=== PATIENT | female | born 1965 | race Caucasian/White ===

== ENCOUNTER 2018-04-21 15:54 | Observation (INO) | payer MEDICAID ==
[~2018-04-21] VITALS: Ht 160 cm; Wt 50.6 kg
--- NOTE | ~2018-04-21 | HEMODYNAMI ---
PATIENT:CONCHA LEMA MEDICAL RECORD: [id number] : 67 LOCATION:[place] [address] ADMISSION DATE: 04/21/18 Generatedon:04/22/201814:15 Patient name: CONCHA LEMA Patient #: [id number] SSN: : 1965 Date of study: 04/22/2018 Page: Of Hemodynamic Procedure Report Patient Data Patient Demographics Procedure consent was obtained First Name: CONCHA Gender: Female Last Name: PITA : 1965 Patient #: [id number] Age: 52 year(s) Race: Unknown Additional ID: [id number] Contact details [address]: [address] [place] [address] State: [place] City: [place] Zip code: [address] Past Medical History Allergies: No known allergies Admission Admission Data Admission Date: 04/21/2018 Admission Time: 19:22 Room #: [facility] Height (in.): 62.99 BSA: 1.51 (m2) Height (cm.): 160 BMI: 19.73 (kg/m2) Weight (lbs.): 111.33 Weight (kg.): 50.5 Lab Results Lab Result Date: 04/22/2018 Lab Result Time: 0:00 Biochemistry Name Units Result Min Max BUN mg/dl 13 --(--*-)-- 7 18 Creatinine mg/dl 0.7 --(*---)-- 0.6 1.3 CBC Name Units Result Min Max Hemoglobin g/dl 12.3 *-(----)-- 13.5 17.5 Procedure Procedure Types Cath Procedure Diagnostic Procedure LHC LHC w/Coronaries Procedure Description Procedure Date Procedure Date: 04/22/2018 Procedure Start Time: 13:58 Procedure End Time: 14:11 Procedure Staff Name Function Justin Esteban MD Performing Physician Angela Huff RT Monitor Brennen Johnston RN Nurse Nancy Valladares RT Scrub Procedure Data Cath Procedure Fluoroscopy Diagnostic fluoroscopy Total fluoroscopy Time: 2.9 time: 2.9 min min Diagnostic fluoroscopy Total fluoroscopy dose: 297 dose: 297 mGy mGy Contrast Material Contrast Material Type Amount (ml) Isovue 300 67 Entry Location Entry Primary Successful Side Size Upsize Upsize Entry Closure Succes sful Closure Location (Fr) 1 (Fr) 2 (Fr) Remarks Device Remarks Femoral Right 5 Fr Exoseal artery Estimated blood loss: 10 ml Diagnostic catheters Device Type Used For End Catheter Placement MULTIPACK JL 4.0 5Fr Procedure catheter MULTIPACK JL 4.0 5Fr Procedure catheter MULTIPACK 3DRC 5Fr Procedure catheter MULTIPACK Pigtail 5 Fr Procedure catheter Procedure Complications No complications Procedure Medications Medication Administration Route Dosage Oxygen etCO2 Nasal cannula 2 l/min Lidocaine 2% added to field 20 Heparin Flush Bag added to field 2 bags (1000units/500ml NS) 0.9% NaCl I.V. 100 ml/hr Radial Cocktail I.A. 1 syringe (Verapomil 2mg/Nitro 400mcg/Heparin 1500units) Versed I.V. 1 mg Fentanyl I.V. 50 mcg Versed I.V. 1 mg Fentanyl I.V. 50 mcg Fentanyl I.V. 25 mcg Hemodynamics Rest BSA: 1.51 (m2) HGB: 12.3 (g/dl) O2 Consumption: Estimated: 149.2 (ml/min) O2 Con sumption indexed: Estimated:98.81 (ml/min/m) Heart Rate: 73 (bpm) Pressure Samples Time Site Value (mmHg) Purpose Heart Use Rate(bpm) 14:08 LV 148/3,23 Snapshot 79 14:08 AO 144/77(105) Pullback 71 14:08 LV 140/4,21 Pullback 71 Gradients Valve Time Site 1 Site 2 Mean SEP/DFP Peak To Heart Use (mmHg) (sec/min) Peak Rate (mmHg) (bpm) Aortic 14:08 LV AO 0 8 0 71 140/4,21 144/77(105) Calculations Valve P-P Mean Valve Index Valve Source Name Gradient Area Flow (cm2) Aortic 0 0 0 0 Snapshots Pre Cath Intra NCS Post Cath Vital Signs Time Heart Resp SPO2 etCO2 NIBP (mmHg) Rhythm Pain Sedation Rate (ipm) (%) (mmHg) Status Level (bpm) 13:44:22 67 15 98 0 163/104(143) NSR 0 (11) 10(A) , No pain 13:48:34 67 15 98 0 161/102(143) NSR 0 (11) 10(A) , No pain 13:52:44 81 14 95 0 152/98(134) NSR 0 (11) 10(A) , No pain 13:56:51 78 15 98 0 136/94(122) NSR 0 (11) 10(A) , No pain 14:00:53 72 14 100 0 148/94(128) NSR 0 (11) 9(A) , No pain 14:05:01 75 15 99 0 140/89(122) NSR 0 (11) 9(A) , No pain 14:09:05 75 16 99 0 133/92(121) NSR 0 (11) 9(A) , No pain 14:12:28 74 17 99 0 131/89(107) NSR 0 (11) 10(A) , No pain Medications Time Medication Route Dose Verified Delivered Reason Notes Effectiveness by by 13:41:19 Oxygen etCO2 2 l/min Justin Buffie used for Nasal Carlito Johnston RN procedure cannula 13:49:35 Lidocaine 2% added 20ml Justin Justin for local to vial Carlito Esteban MD anesthetic field 13:49:42 Heparin Flush added 2 bags Justin Justin used for Bag to Carlito Esteban MD procedure (1000units/500ml field NS) 13:49:52 0.9% NaCl I.V. 100 Justin Buffie Per ml/hr Carlito Johnston RN physician 13:50:05 Radial Cocktail I.A. 1 Justin Justin for not (Verapomil syringe Carlito Esteban MD vasodilation used. 2mg/Nitro femoral 400mcg/Heparin access. 1500units) 13:54:34 Versed I.V. 1 mg Justin Buffie for sedation Carlito Johnston RN 13:54:40 Fentanyl I.V. 50 mcg Justin Buffie for sedation Carlito Johnston RN 14:01:11 Versed I.V. 1 mg Justin Buffie for sedation Carlito Johnston RN 14:01:15 Fentanyl I.V. 50 mcg Justin Buffie for sedation Carlito Johnston RN 14:05:49 Fentanyl I.V. 25 mcg Justin Buffie for sedation Carlito Johnston RN Procedure Log Time Note 13:34:23 Patient Height : 62.99 inches 13:34:27 Patient Weight : 111.33 lbs 13:35:06 Lab Result : Creatinine 0.7 mg/dl 13:35:06 Lab Result : BUN 13 mg/dl 13:35:06 Lab Result : Hemoglobin 12.3 g/dl 13:35:33 Diagnostic Cath status Elective 13:35:35 Brennen Johnston RN sent for patient. Start room use. 13:35:36 Time tracking: Regular hours (M-F 7:00 - 5:00) 13:35:41 Plan of Care:Hemodynamics will remain stable., Cardiac rhythm will remain stable., Comfort level will be maintained., Respiratory function will remain adequate., Patient/ family verbilizes understanding of procedure., Procedure tolerated without complication., Recovers from procedure without complications.. 13:36:12 Patient received from Med II to CCL 2 Alert and oriented. Tansferred to table in Supine position. 13:36:14 Warm blankets applied, and presley hugger turned on for patient comfort. 13:36:14 Correct patient and procedure confirmed by team. 13:36:16 Signed procedure consent form obtained from patient. 13:36:33 H&P Date Dictated: 04/21/2018 Within 30 days and on chart., H&P Addendum completed by physician on day of procedure. (MUST COMPLETE FOR ALL OUTPATIENTS). 13:36:35 Pre-procedure instructions explained to patient. 13:36:37 Family in patients room. 13:36:39 Patient NPO since Midnight. 13:36:49 Patient allergic to No known allergies 13:36:52 Is the patient allergic to Iodine/contrast media? No. 13:36:54 Was the patient premedicated? Yes 13:37:01 Is patient on blood thinner?No 13:37:49 Patient diabetic? No. 13:37:55 Patient not . Patient has had tubal. 13:38:00 Snore? Yes 13:40:21 Full Disclosure recording started 13:41:19 Oxygen 2 l/min etCO2 Nasal cannula was administered by Brennen Johnston RN; used for procedure; 13:43:18 Vital chart was started 13:43:18 ECG and BP/O2 sat monitors applied to patient. 13:43:19 Baseline sample Acquired. 13:43:22 Rhythm: sinus rhythm 13:43:26 Pre-op teaching completed and patient verbalized understanding. 13:43:32 Previous problem with sedation/anesthesia? No ? 13:43:38 Sleep apnea? No 13:43:39 Deviated septum? No 13:43:40 Opens mouth fully? Yes 13:43:41 Sticks out tongue? Yes 13:43:42 Airway obstruction? No ? 13:43:45 Dentures? No ? 13:43:48 Pre procedure: right dorsailis pedis pulse 2+ Normal; easily identifiable; not easily obliterated 13:43:50 Modified Magdi's test Ulnar < 7 seconds 13:43:51 Patient pain scale 0/10 ?. 13:44:01 IV patent on arrival in left forearm with 0.9% NaCl at [facility]. 13:44:04 Lab results completed and on chart. 13:44:09 Right Radial & Right Groin area was prepped with chlora-prep and draped in sterile fashion 13:44:10 Alarms reviewed by R. N. 13:44:10 Sharps counted by scrub and verified by R.N. 13:44:16 ACIST Syringe (88395) opened to sterile field. 13:44:17 Medline Cath Pack ([id number]) opened to sterile field. 13:44:17 Bag Decanter (2002S) opened to sterile field. 13:44:18 DIAGNOSTIC WIRE .035 260cm J wire (901491) opened to sterile field. 13:44:18 ACIST Hand Control (77723) opened to sterile field. 13:44:19 ACIST Manifold (70182) opened to sterile field. 13:44:19 Tegaderm 4 x 4 (1626W) opened to sterile field. 13:44:20 MBrace Wrist Support ([id number]) opened to sterile field. 13:48:14 Physician paged 13:49:35 Lidocaine 2% 20ml vial added to field was administered by Justin Esteban MD; for local anesthetic; 13:49:42 Heparin Flush Bag (1000units/500ml NS) 2 bags added to field was administered by Justin Esteban MD; used for procedure; 13:49:52 0.9% NaCl 100 ml/hr I.V. was administered by Brennen Johnston RN; Per physician; 13:50:05 Radial Cocktail (Verapomil 2mg/Nitro 400mcg/Heparin 1500units) 1 syringe I.A. was administered by Justin Esteban MD; for vasodilation; not used. femoral access. 13:52:54 Physician arrived 13::55 --------ALL STOP TIME OUT------ 13:52:55 Final Timeout: patient, procedure, and site verified with staff and physician. All members of the team are in agreement. 13:53:12 Physical assessment completed. ASA score P 2 - A patient with mild systemic disease as per Justin Esteban MD. 13:53:15 Sedation plan: IV Moderate Sedation Medication:Versed, Fentanyl 13:54:34 Versed 1 mg I.V. was administered by Brennen Johnston RN; for sedation; 13:54:40 Fentanyl 50 mcg I.V. was administered by Brennen Johnston RN; for sedation; 13:57:14 Use device set Multipack Set 13:57:18 DIAGNOSTIC Multipack 5Fr catheter set ([id number]) opened to sterile field. 13:58:16 Procedure started. 13:58:18 Use device set Femoral Dx 13:58:46 Local anesthetic to right femoral artery with Lidocaine 2% by Justin Esteban MD.INITIAL ACCESS ONLY 13:58:54 SHEATH Prelude 5Fr 0.035 ([id number]-[id number]) opened to sterile field. 13:58:56 PERCUTANEOUS ENTRY 19GA needle opened to sterile field. 13:58:57 Tegaderm 4 x 4 (1626W) opened to sterile field. 13:58:58 DIAGNOSTIC Multipack 5Fr catheter set ([id number]) opened to sterile field. 13:59:01 ACIST Hand Control (25799) opened to sterile field. 13:59:01 ACIST Manifold (42405) opened to sterile field. 13:59:33 A 5 Fr sheath was inserted into the Right Femoral artery 14:00:43 A MULTIPACK JL 4.0 5Fr catheter was advanced over the wire and used for Procedure. 14:01:11 Versed 1 mg I.V. was administered by Brennen Johnston RN; for sedation; 14:01:15 Fentanyl 50 mcg I.V. was administered by Brennen Johnston RN; for sedation; 14:01:17 Zero performed for pressure channel P1 14:01:21 Zero performed for pressure channel P1 14:01:26 Zero performed for pressure channel P1 14:02:51 A MULTIPACK JL 4.0 5Fr catheter was advanced over the wire and used for Procedure. 14:04:43 LCA angiography performed. 14:05:10 Catheter removed. 14:05:17 A MULTIPACK 3DRC 5Fr catheter was advanced over the wire and used for Procedure. 14:05:25 RCA angiography performed. 14:05:49 Fentanyl 25 mcg I.V. was administered by Brennen Johnston RN; for sedation; 14:06:13 Catheter removed. 14:06:23 A MULTIPACK Pigtail 5 Fr catheter was advanced over the wire and used for Procedure. 14:08:29 EF : 40 % 14:09:51 Catheter removed. 14:09:55 EXOSEAL 5Fr (EX500) opened to sterile field. 14:10:04 Sheath removed intact; hemostasis achieved with Exoseal to the Right Femoral artery. 14:10:42 Procedure ended.(Physican Out) 14:10:48 Fluoroscopy time 02.90 minutes. 14:10:52 Fluoroscopy dose: 297 mGy 14:10:52 Flurop Dose total: 297 14:10:57 Contrast amount:Isovue 300 67ml. 14:10:59 Sharps counted by scrub and verified by R.N. 14:11:00 Insertion/operative site no bleeding no hematoma. 14:11:03 Post-op/insertion site Right Femoral artery dressed using a 4 x 4 and Tegaderm. 14:11:04 Post Procedure Pulses reassessed and unchanged 14:11:07 Post-procedure physical assessment completed. ASA score P 2 - A patient with mild systemic disease as per Justin Esteban MD. 14:11:11 Post procedure rhythm: sinus rhythm 14:11:14 Estimated blood loss: 10 ml 14:11:16 Post procedure instruction explained to patient.Patient verbalizes understanding. 14:11:27 Procedure type changed to Cath procedure, Diagnostic procedure, LHC, LHC w/Coronaries 14:11:28 Procedure and supply charges have been captured, reviewed, submitted and are correct. 14:11:47 Procedure Complication : No complications 14:11:50 Vital chart was stopped 14:11:51 See physician's report for complete and final results. 14:11:53 Report given to Pre/Post Procedure Room. 14:11:55 Patient transfered to Pre/Post Procedure Room with Stretcher. 14:11:57 Procedure ended. 14:11:57 Full Disclosure recording stopped 14:12:01 End room use (Document Last) Device Usage Item Name Manufacture Quantity Catalog Number Hospital Part Current M inimal Lot# / Charge Number Stock Stock Serial# Code ACIST Syringe Acist 1 57921 669794 865813 867567 2 0 (70542) [employer] Medline Cath Medline 1 [id number] 848975 68247 560211 5 Pack ([id number]) Bag Decanter Microtek 1 2001S 188059 21740 099269 5 (2001S) Medical Inc. DIAGNOSTIC WIRE St Josh 1 811525 413548 621660 504717 3 0 .035 260cm J wire (707438) ACIST Hand Acist 2 86520 382833 751530 816563 5 Control (04117) [employer] ACIST Manifold Acist 2 75994 861902 321107 372533 5 (77948) [employer] Inc Tegaderm 4 x 4 3M 2 1626W 518607 031816 228863 5 (1626W) MBrace Wrist Advanced 1 140-0250-00 684299 48480 690512 5 Support Vascular ([id number]) Dynamics DIAGNOSTIC Cardinal 2 [id number] 298561 80635 763723 3 0 Multipack 5Fr Health catheter set ([id number]) SHEATH Prelude Merit 1 [id number]-7X-78-035 441290 393943 717206 5 5Fr 0.035 Medical (MQL-9P-79-035) PERCUTANEOUS Cook Medical 1 Q27036 894646 397045 5 ENTRY 19GA needle MULTIPACK JL Cardinal 2 [id number] 5 4.0 5Fr Health catheter MULTIPACK 3DRC Cardinal 1 685485 5 5Fr catheter Health MULTIPACK Cardinal 1 040077 5 Pigtail 5 Fr Health catheter EXOSEAL 5Fr Cardinal 1 EX500 101272 239623 210975 1 0 (EX500) Health Signature Audit Kismet Stage Time Signature Unsigned Intra-Procedure 04/22/2018 Angela Huff 2:15:00 PM RT(R) Signatures Monitor : Angela Huff Signature : RT Date : Time : [facility] [address] [place] [address]
--- NOTE | ~2018-04-21 | MORECARE ---
CASE MANAGEMENT DISCHARGE SUMMARY PATIENT: CONCHA LEMA UNIT: [id number] ADM DATE: 04/21/18 AGE: 52 : 67 SEX: F ROOM/BED: D.2146 AUTHOR: ARGENTINA MENDEZ PHYSICIAN: REFERRING PHYSICIAN: LIZBET WIGGINS M.D. DATE OF SERVICE: 04/23/18 Discharge Plan Patient Name: CONCHA LEMA Facility: [facility]:[place] : 1965 Planned Disposition: Home Anticipated Discharge Date: 04/22/18 Discharge Date: 04/22/2018 Expected LOS: 1 Initial Reviewer: [email or web address] Initial Review Date: 04/23/2018 Generated: 04/23/18 9:01 am Patient Name: CONCHA LEMA Page [id number] at 0802 All edits/amendments must be made on the electronic document DICTATION DATE: 04/23/18800 LEAF COVERER: LUCIA 04/23/18800 RPT#: [id number] DC DATE:04/22/18 STATUS: DIS IN [facility] [address] [place] [address] END OF REPORT
[2018-04-21 16:13] VITALS: BP 152/87
[2018-04-21] MEDS ORDERED: PRINIVIL20 MG PO (16:19)
[2018-04-21 16:55] LABS: HEMATOCRIT 39.5 % (36.0-48.0); HEMOGLOBIN 13.9 g/dL (12-16); MCHC 35.2 g/dL (31.0-37.0); MCV 85.1 fL (80.0-100.0); MEAN PLATELET VOLUME 9.5 fL (7.4-10.4); PLATELET COUNT 186 10x3/uL (130-400); RBC 4.64 10x6/uL (4.00-5.40); RDW 14.1 % (11.5-14.5)
[2018-04-21 17:08] LABS: APTT 25.3 SECONDS (22.8-39.4); INR 0.95 (0.85-1.17); PROTIME 12.3 SECONDS (11.6-15.0)
[2018-04-21 17:11] LABS: ALBUMIN 3.7 g/dL (3.4-5.0); ALKALINE PHOSPHATASE 61 U/L (46-116); ALT (SGPT) 17 U/L (10-68); BILIRUBIN - TOTAL 0.33 mg/dL (0.2-1.3); CALC OSMOLALITY 278 mosm/kg (275-300); CALCIUM 8.5 mg/dL (8.5-10.1); CARBON DIOXIDE 26.2 mmol/L (21.0-32.0); CHLORIDE - SERUM 104 mmol/L (98-107); CREATININE - SERUM 0.9 mg/dL (0.6-1.3); GLUCOSE 96 mg/dL (74-106); POTASSIUM - SERUM 3.6 mmol/L (3.5-5.1); PROTEIN - SERUM 7.9 g/dL (6.4-8.2); SODIUM 140 mmol/L (136-145); UREA NITROGEN 12 mg/dL (7-18); eGFR NON AFRICAN AMERICAN 70 mL/min (90-120)
[2018-04-21 17:22] LABS: CKMB 1.2 U/L (0.0-3.6); CREATINE KINASE 88 UL (21-215); MAGNESIUM - SERUM 1.8 mg/dL (1.8-2.4); THYROID STIMULATING HORMONE 2.38 uIU/mL (0.36-3.74)
[2018-04-21 17:25] LABS: TROPONIN-I < 0.017 ng/mL (0.000-0.060)
[2018-04-21 17:29] LABS: EOSINOPHILS 4 % (0-7); LYMPHOCYTES 50 % (15-50); MONOCYTES 3 % (2-11); NEUTROPHILS 43 % (40-80); PLATELET ESTIMATE NORMAL
[2018-04-21 18:01] LABS: APPEARANCE CLEAR (CLEAR); BILIRUBIN NEGATIVE (NEGATIVE); COLOR YELLOW (YELLOW); GLUCOSE NEGATIVE (NEGATIVE); KETONE NEGATIVE (NEGATIVE); NITRITE NEGATIVE (NEGATIVE); PROTEIN NEGATIVE (NEGATIVE); UROBILINOGEN NORMAL (NORMAL)
[2018-04-21 19:52] LABS: CKMB 0.9 U/L (0.0-3.6); CREATINE KINASE 82 UL (21-215)
[2018-04-21] MEDS ORDERED: STRIBILD TABLE1 EACH PO (19:55)
[2018-04-21 20:06] VITALS: BP 139/91; Ht 160 cm; Wt 50.6 kg
[2018-04-21 20:17] LABS: TROPONIN-I < 0.017 ng/mL (0.000-0.060)
[2018-04-21 21:30] VITALS: BP 139/91
[2018-04-22 00:49] VITALS: BP 120/80
[2018-04-22 01:57] LABS: CREATINE KINASE 78 UL (21-215); TROPONIN-I < 0.017 ng/mL (0.000-0.060)
[2018-04-22 06:23] VITALS: BP 129/55
[2018-04-22 07:18] LABS: HEMATOCRIT 36.5 % (36.0-48.0); HEMOGLOBIN 12.3 g/dL (12-16); LYMPHOCYTES 53.3 % (15-50); MCH 29.4 pg (26.0-34.0); MCHC 33.7 g/dL (31.0-37.0); MEAN PLATELET VOLUME 9.1 fL (7.4-10.4); MONOCYTES 13.9 % (2-11); NEUTROPHILS 28.8 % (40-80); PLATELET COUNT 150 10x3/uL (130-400); RBC 4.19 10x6/uL (4.00-5.40); RDW 14.4 % (11.5-14.5)
[2018-04-22 07:27] LABS: MCV 87.1 fL (80.0-100.0)
[2018-04-22 07:47] LABS: ALKALINE PHOSPHATASE 49 U/L (46-116); ALT (SGPT) 15 U/L (10-68); BILIRUBIN - TOTAL 0.31 mg/dL (0.2-1.3); CALC OSMOLALITY 282 mosm/kg (275-300); CARBON DIOXIDE 26.7 mmol/L (21.0-32.0); CHLORIDE - SERUM 108 mmol/L (98-107); CKMB 0.9 U/L (0.0-3.6); CREATINE KINASE 60 UL (21-215); CREATININE - SERUM 0.7 mg/dL (0.6-1.3); GLUCOSE 98 mg/dL (74-106); POTASSIUM - SERUM 3.9 mmol/L (3.5-5.1); PROTEIN - SERUM 6.6 g/dL (6.4-8.2); SODIUM 142 mmol/L (136-145); UREA NITROGEN 13 mg/dL (7-18); eGFR NON AFRICAN AMERICAN > 90 mL/min (90-120)
[2018-04-22 07:48] LABS: TROPONIN-I < 0.017 ng/mL (0.000-0.060)
[2018-04-22 08:45] VITALS: BP 111/51
[2018-04-22 13:19] VITALS: BP 149/97
[2018-04-22 16:36] VITALS: BP 138/92
== END 2018-04-22 17:05 | disposition home or self-care (01) ==
LOC: D.ER 15:54 → D.M2 19:22 → OBSVTIME 19:22 → D.EDHOLD 19:22 → D.M2 19:23
PROVIDERS: Family Medicine
DX: I25.110 Atherosclerotic heart disease of native coronary artery with unstable angina pectoris (principal); K75.9 Inflammatory liver disease, unspecified; B20 Human immunodeficiency virus [HIV] disease; F32.9 Major depressive disorder, single episode, unspecified; F41.9 Anxiety disorder, unspecified

== ENCOUNTER 2018-12-22 11:13 | Emergency (ER) | payer MEDICAID ==
[~2018-12-22] VITALS: Ht 160 cm; Wt 56.8 kg
[~2018-12-22 11:13] MED LIST: PRINIVIL20 MG PO; STRIBILD TABLE1 EACH PO
[2018-12-22 11:20] VITALS: Ht 160 cm; Wt 56.8 kg
[2018-12-22 12:06] LABS: BASOPHILS 0.1 % (0-2); EOSINOPHILS 0.3 % (0-7); HEMATOCRIT 37.8 % (36.0-48.0); IMMATURE GRANULOCYTES 0.4 % (0-5); LYMPHOCYTES 10.5 % (15-50); MCH 30.2 pg (26.0-34.0); MCHC 34.4 g/dL (31.0-37.0); MCV 87.7 fL (80.0-100.0); MEAN PLATELET VOLUME 9.7 fL (7.4-10.4); MONOCYTES 2.3 % (2-11); NEUTROPHILS 86.4 % (40-80); PLATELET COUNT 151 10x3/uL (130-400); RBC 4.31 10x6/uL (4.00-5.40); RDW 12.6 % (11.5-14.5)
[2018-12-22 12:13] LABS: APTT 23.4 SECONDS (22.8-39.4); PROTIME 12.7 SECONDS (11.6-15.0)
[2018-12-22 12:16] LABS: APPEARANCE CLEAR (CLEAR); BILIRUBIN NEGATIVE (NEGATIVE); COLOR YELLOW (YELLOW); GLUCOSE NEGATIVE (NEGATIVE); KETONE NEGATIVE (NEGATIVE); NITRITE NEGATIVE (NEGATIVE); PROTEIN NEGATIVE (NEGATIVE); UROBILINOGEN NORMAL (NORMAL)
[2018-12-22 12:36] LABS: ALBUMIN 3.7 g/dL (3.4-5.0); ALKALINE PHOSPHATASE 81 U/L (46-116); ALT (SGPT) 72 U/L (10-68); BILIRUBIN - TOTAL 0.65 mg/dL (0.2-1.3); CALC OSMOLALITY 273 mosm/kg (275-300); CALCIUM 8.8 mg/dL (8.5-10.1); CARBON DIOXIDE 25.4 mmol/L (21.0-32.0); CHLORIDE - SERUM 101 mmol/L (98-107); CREATININE - SERUM 0.8 mg/dL (0.6-1.3); GLUCOSE 110 mg/dL (74-106); POTASSIUM - SERUM 4.2 mmol/L (3.5-5.1); SODIUM 136 mmol/L (136-145); UREA NITROGEN 15 mg/dL (7-18); eGFR NON AFRICAN AMERICAN 80 mL/min (90-120)
[2018-12-22 12:44] LABS: CKMB 1.5 U/L (0.0-3.6); CREATINE KINASE 95 UL (21-215); MAGNESIUM - SERUM 1.6 mg/dL (1.8-2.4); THYROID STIMULATING HORMONE 1.73 uIU/mL (0.36-3.74); TROPONIN-I < 0.017 ng/mL (0.000-0.060)
[2018-12-22 12:47] LABS: EPITHELIAL CELLS RARE /hpf (0-5)
[2018-12-22 12:48] LABS: RED CELLS - URINE RARE /hpf (0-5)
[2018-12-22 12:52] LABS: BACTERIA NONE SEEN /hpf (NONE SEEN)
[2018-12-22] MEDS ORDERED: ACETAMINOPHEN500 M1 PO (13:01)
[2018-12-22] MEDS ORDERED: CYCLOBENZAPRINE10 MG PO (13:01)
[2018-12-22] MEDS ORDERED: IBUPROFEN800 MG PO (13:01)
[2018-12-22 14:21] VITALS: BP 130/84
== END 2018-12-22 14:22 | disposition home or self-care (01) ==
LOC: D.ER 11:13
PROVIDERS: Family Medicine
DX: R53.1 Weakness (principal); R51 Headache; M54.2 Cervicalgia